=== PATIENT | female | born 1945 | race Caucasian/White ===

== ENCOUNTER 2016-11-01 21:24 | Emergency (ER) | payer OTHER ==
[~2016-11-01] VITALS: Ht 152.4 cm; Wt 68.2 kg
[2016-11-01 21:35] VITALS: Ht 152.4 cm; Wt 68.2 kg
--- NOTE | 2016-11-01 22:24 | ERA ---
ER Documentation Chief Complaint Date/Time DATE: 11/01/16 TIME: 22:24 Chief Complaint Abdominal pain HPI The patient is a 71-year-old female, presenting to the ER because of diffuse abdominal pain and left lower back pain for the last 3 days, worse today. She denies similar symptoms previously, no aggravating or relieving factor, denies associated nausea or vomiting or diarrhea constipation. She denies fever, chills , neck pain, chest pain. She does not smoke or drink Past medical history: Diabetes mellitus, dyslipidemia, hypertension, GERD Past surgical history: Hysterectomy ROS All systems reviewed and are negative except as per history of present illness. Medications Home Meds Active Scripts Ibuprofen* (Motrin*) 600 Mg Tab, 600 MG PO Q6, #30 TAB Prov:ARMAAN FITCH MD 11/02/16 Metronidazole* (Flagyl*) 500 Mg Tablet, 500 MG PO TID for 10 Days, TAB Prov:ARMAAN FITCH MD 11/02/16 Ciprofloxacin Hcl* (Ciprofloxacin Hcl*) 500 Mg Tablet, 500 MG PO BID for 10 Days , TAB Prov:ARMAAN FITCH MD 11/02/16 Reported Medications Ergocalciferol (Vitamin D2) (VITAMIN D2) 50,000 Unit Capsule, 38355 UNIT PO, CAP 11/02/16 Aspirin* (Aspirin* EC) 81 Mg Tablet.dr, 81 MG PO DAILY, TAB 11/02/16 Lisinopril* (Lisinopril*) 20 Mg Tablet, 20 MG PO DAILY, #30 TAB 11/02/16 Metformin* (Glucophage*) 500 Mg Tab, 500 MG PO WITH BREAKFAST DINNE, #30 TAB 11/02/16 Acetaminophen* (Acetaminophen*) 500 MG Extra Strength Tablet, 500 MG PO Q4H Y for PAIN AND OR ELEVATED TEMP, TAB 11/02/16 Allergies Allergies: Coded Allergies: No Known Allergy (Unverified , 11/01/16) Physical Exam Vitals Vital Signs Date Time Temp Pulse Resp B/P Pulse Ox O2 Delivery O2 Flow Rate FiO2 11/02/16 00:31 97.6 77 20 164/77 98 Room Air 11/01/16 21:35 97.6 106 20 163/72 98 Physical Exam Const: No acute distress. Head: Atraumatic. Eyes: Normal Conjunctiva. ENT: Normal External Ears, Nose and Mouth. Neck: Full range of motion. No meningismus. Resp: Clear to auscultation bilaterally. Cardio: Regular rate and rhythm. Abd: Soft, obese and diffuse abdominal mild tenderness, normal bowel sounds, mild left CVA tenderness, no rigidity, rebound, CVA tenderness Skin: No petechiae or rashes. Back: No midline or flank tenderness. Ext: No cyanosis, or edema. Neur: Awake and alert. No focal deficit Psych: Normal Mood and Affect. Result Diagram: 11/01/16222611/01/162226 Results 24 hrs Laboratory Tests Test 11/01/16 22:27 11/01/16 23:19 White Blood Count 9.510^3/ul Red Blood Count 4.1810^6/ul Hemoglobin 13.2g/dl Hematocrit 36.4% Mean Corpuscular Volume 87.1fl Mean Corpuscular Hemoglobin 31.6pg Mean Corpuscular Hemoglobin Concent 36.3g/dl Red Cell Distribution Width 12.2% Platelet Count 16043^3/UL Mean Platelet Volume 10.5fl Neutrophils % 60.6% Lymphocytes % 32.4% Monocytes % 6.3% Eosinophils % 0.0% Basophils % 0.3% Nucleated Red Blood Cells % 0.0/100WBC Neutrophils # 5.710^3/ul Lymphocytes # 3.110^3/ul Monocytes # 0.610^3/ul Eosinophils # 0.010^3/ul Basophils # 0.010^3/ul Nucleated Red Blood Cells # 0.010^3/ul Sodium Level 146mmol/L Potassium Level 4.1mmol/L Chloride Level 101mmol/L Carbon Dioxide Level 24mmol/L Anion Gap 25 Blood Urea Nitrogen 13mg/dl Creatinine 0.66mg/dl Glucose Level 189mg/dl Calcium Level 9.5mg/dl Total Bilirubin 0.2mg/dl Direct Bilirubin 0.00mg/dl Indirect Bilirubin 0.2mg/dl Aspartate Amino Transf (AST/SGOT) 22IU/L Alanine Aminotransferase (ALT/SGPT) 34IU/L Alkaline Phosphatase 114IU/L Total Protein 7.6g/dl Albumin 4.4g/dl Globulin 3.20g/dl Albumin/Globulin Ratio 1.37 Lipase 34U/L Bedside Urine pH (LAB) 5.5 Bedside Urine Protein (LAB) Negative Bedside Urine Glucose (UA) Negative Bedside Urine Ketones (LAB) Negative Bedside Urine Blood Trace-intact Bedside Urine Nitrite (LAB) Negative Bedside Urine Leukocyte Esterase (L 2+ Current Medications Medications (Trade) Dose Ordered Sig/Arsh Route PRN Reason Start Time Stop Time Status Last Admin Dose Admin Morphine Sulfate (morphine) 2 mg ONCE ONCE IV 11/01/16 23:00 11/01/16 23:01 DC 11/01/16 23:39 Ondansetron HCl (Zofran Inj) 4 mg ONCE STAT IV 11/01/16 22:40 11/01/16 22:42 DC 11/01/16 23:39 Ciprofloxacin (Cipro) 500 mg ONCE ONCE PO 11/02/16 01:00 11/02/16 01:01 DC 11/02/16 01:07 Metronidazole (Flagyl) 500 mg ONCE ONCE PO 11/02/16 01:00 11/02/16 01:01 DC 11/02/16 01:07 Procedures/[place] [id number] Radiology Main Line: [phone] DIAGNOSTIC IMAGING REPORT Patient: CHI JAY : 1945 Age: 71 Sex: F MR #: [id number] DOS: 11/01/16 2240 Ordering MD: ARMAAN FITCH MD Location: E/R Room/Bed: PROCEDURE: CT Abdomen and pelvis without contrast. CLINICAL INDICATION: Abdominal pain. TECHNIQUE: CT scan of the abdomen and pelvis was performed on a multi- detector high-resolution CT scanner. Contiguous axial images were obtained from the lung bases to the ischial tuberosities without intravenous contrast. Coronal and sagittal reformatted images were also obtained. Images were reviewed on the PACS workstation. One or more of the following dose reduction techniques were used: - Automated exposure control. - Adjustment of the mA and/or kV according to patient size. - Use of iterative reconstruction technique. Exam CTD/vol = 13.58 mGy. Total exam DLP = 752.58 mGy-cm. COMPARISON: None. FINDINGS: Evaluation of the lung bases demonstrates mild ground-glass opacities suggestive of air trapping. Abdomen: The liver is normal in size. There is no focal mass or dilatation of the biliary tree. The gallbladder is not distended. A small gallstone is identified. The spleen, pancreas and bilateral adrenal glands are within normal limits. Bilateral kidneys are normal in size with a cyst within the lower pole of the left kidney measuring 1.7 x 1.3 cm with layering calcifications. There is no radiopaque renal or ureteral calculus identified. There is no hydronephrosis or hydroureter. There is no retroperitoneal adenopathy. The abdominal aorta is of normal caliber with scattered atherosclerotic calcifications. There is moderate retained stool within the colon. There is no bowel obstruction or free air. A normal appendix is identified. There is sigmoid diverticulosis with mild thickening and stranding involving the proximal sigmoid colon. There is no ascites. Pelvis: The bladder is unremarkable. The uterus is absent. There is no significant pelvic adenopathy or free fluid. Evaluation of the osseous structures demonstrates no suspicious lytic or blastic lesion. IMPRESSION: Sigmoid diverticulosis with mild diverticulitis of the proximal sigmoid. Moderate retained stool within the colon. Cholelithiasis. Small left renal cyst with layering calcifications. Vascular calcifications reflective of atherosclerosis. .oJsé Ray MD, MD Date Time Electronically viewed and signed by .José Ray MD, on 11/02/2016 00:31 .T/ CC: ARMAAN FITCH MD MEDICAL MAKING DECISION: The patient is a 71-year-old female, presenting with acute left pyelonephritis, acute mild diverticulitis and incidental cholelithiasis. She was treated with morphine 2 mg IV for pain, Zofran 4 mg IV for now nausea, Cipro 500 mg p.o., Flagyl 500 mg p.o. for acute pyelonephritis and acute diverticulitis with good response. She is not toxic, stable vital signs, stable for outpatient follow-up The differential diagnoses considered include but are not limited to cholelithiasis, cholecystitis, cystitis, pancreatitis, hepatitis, gastritis, peptic ulcer disease, gastric ulcer, appendicitis, diverticulitis, cholangitis, choledocholithiasis, partial small bowel obstruction. Departure Diagnosis: Primary Impression: Pyelonephritis Additional Impressions: Diverticulitis Cholelithiasis Condition: Good Comments She was discharged with Geovany Jeffries Motrin I discussed the findings with the patient. I advised the patient to follow-up with the primary physician in about 1-2 days, sooner if needed and return if any concern. ARMAAN FITCH MD Nov 01, 2016 22:24
[2016-11-01] MEDS ORDERED: ONDANSETRON 4 MG INJ IV STA (22:40)
[2016-11-01] MEDS ORDERED: morphine 2 MG INJ IV ONE (23:00)
[2016-11-01 23:14] LABS: URINE BLOOD (Dip) POC Trace-intact (NEGATIVE)
[2016-11-01 23:22] LABS: BASOPHILS % 0.3 % (0.0-2.0); HEMATOCRIT 36.4 % (37.0-47.0); HEMOGLOBIN 13.2 g/dl (12.0-16.0); LYMPHOCYTES # 3.1 10^3/ul (0.8-2.9); LYMPHOCYTES % 32.4 % (15.0-51.0); MEAN CORPUSCULAR HEMOGLOBIN 31.6 pg (29.0-33.0); MEAN CORPUSCULAR HGB CONC 36.3 g/dl (32.0-37.0); MEAN CORPUSCULAR VOLUME 87.1 fl (82.0-101.0); MEAN PLATELET VOLUME 10.5 fl (7.4-10.4); MONOCYTE # 0.6 10^3/ul (0.3-0.9); MONOCYTES % 6.3 % (0.0-11.0); NEUTROPHIL # 5.7 10^3/ul (1.6-7.5); NEUTROPHILS % 60.6 % (39.0-77.0); PLATELET COUNT 259 10^3/UL (140-415); RED BLOOD COUNT 4.18 10^6/ul (4.20-5.40); RED CELL DISTRIBUTION WIDTH 12.2 % (11.5-14.5); WHITE BLOOD COUNT 9.5 10^3/ul (4.8-10.8)
[2016-11-01 23:46] LABS: ALBUMIN 4.4 g/dl (3.3-4.9); ALBUMIN/GLOBULIN RATIO 1.37; BILIRUBIN,INDIRECT 0.2 mg/dl (0-1.1); BILIRUBIN,TOTAL 0.2 mg/dl (0.2-1.3); CALCIUM 9.5 mg/dl (8.4-10.2); CREATININE 0.66 mg/dl (0.44-1.00); POTASSIUM 4.1 mmol/L (3.5-5.1); TOTAL PROTEIN 7.6 g/dl (6.1-8.1)
[2016-11-02] MEDS ORDERED: ACET-141 PO (00:22)
[2016-11-02] MEDS ORDERED: ASPI-664 PO (00:22)
[2016-11-02] MEDS ORDERED: ERGO500037 PO (00:22)
[2016-11-02] MEDS ORDERED: METF500T4 PO (00:22)
[2016-11-02] MEDS ORDERED: LISI20TA11 PO (00:22)
--- NOTE | 2016-11-02 00:31 | RADRPT ---
PROCEDURE: CT Abdomen and pelvis without contrast. CLINICAL INDICATION: Abdominal pain. TECHNIQUE: CT scan of the abdomen and pelvis was performed on a multi-detector high-resolution CT scanner. Contiguous axial images were obtained from the lung bases to the ischial tuberosities wit hout intravenous contrast. Coronal and sagittal reformatted images were also obtained. Images were reviewed on the PACS workstation. One or more of the following dose reduction techniques were used: - Automated exposure control. - Adjustment of the mA and/or kV according to patient size. - Use of iterative reconstruction technique. Exam CTD/vol = 13.58 mGy. Total exam DLP = 752.58 mGy-cm. COMPARISON: None. FINDINGS: Evaluation of the lung bases demonstrates mild ground-glass opacities suggestive of air trapping. Abdomen: The liver is normal in size. There is no focal mass or dilatation of the biliary tree. T he gallbladder is not distended. A small gallstone is identified. The spleen, pancreas and bilater al adrenal glands are within normal limits. Bilateral kidneys are normal in size with a cyst within the lower pole of the left kidney measuring 1.7 x 1.3 cm with layering calcifications. There is no radiopaque renal or ureteral calculus identified. There is no hydronephrosis or hydroureter. Ther e is no retroperitoneal adenopathy. The abdominal aorta is of normal caliber with scattered atheros clerotic calcifications. There is moderate retained stool within the colon. There is no bowel obstruction or free air. A no rmal appendix is identified. There is sigmoid diverticulosis with mild thickening and stranding inv olving the proximal sigmoid colon. There is no ascites. Pelvis: The bladder is unremarkable. The uterus is absent. There is no significant pelvic adenopa thy or free fluid. Evaluation of the osseous structures demonstrates no suspicious lytic or blastic lesion. IMPRESSION: Sigmoid diverticulosis with mild diverticulitis of the proximal sigmoid. Moderate retained stool within the colon. Cholelithiasis. Small left renal cyst with layering calcifications. Vascular calcifications reflective of atherosclerosis. .José Ray MD, MD Date Time Electronically viewed and signed by .José Ray MD, MD on 11/02/2016 00:31 .T/
[2016-11-02] MEDS ORDERED: CIPROFLOXACIN 500 MG TAB PO ONE (01:00)
[2016-11-02] MEDS ORDERED: metroNIDAZOLE 500 MG TAB PO ONE (01:00)
[2016-11-02] MEDS ORDERED: CIPR500T4 PO (01:31)
[2016-11-02] MEDS ORDERED: METR500T PO (01:32)
[2016-11-02] MEDS ORDERED: IBUP-1542 PO (01:32)
[2016-11-02 02:29] VITALS: BP 155/68; PULSE 77; RESP 20; TEMP 97.6
== END 2016-11-02 02:30 | disposition home or self-care (01) ==
LOC: E/R 21:24
DX: N10 Acute pyelonephritis (principal); K57.32 Diverticulitis of large intestine without perforation or abscess without bleeding; K80.20 Calculus of gallbladder without cholecystitis without obstruction; I10 Essential (primary) hypertension; E11.9 Type 2 diabetes mellitus without complications; Z79.84 Long term (current) use of oral hypoglycemic drugs; Z79.82 Long term (current) use of aspirin
CPT/HCPCS: 36415; 74176; 80053; 81003; 83690; 85025; 96374; 96375; 99285; J2270; J2405

== ENCOUNTER 2016-12-11 12:43 | Inpatient (IN) | payer OTHER ==
[~2016-12-11] VITALS: Ht 157.5 cm; Wt 70.0 kg
[~2016-12-11 12:43] MED LIST: ACET-141 PO; ASPI-664 PO; CIPR500T4 PO; ERGO500037 PO; IBUP-1542 PO; LISI20TA11 PO; METF500T4 PO; METR500T PO
[2016-12-11] MEDS ORDERED: ACETAMINOPHEN 500 MG TAB PO STA (15:11)
--- NOTE | 2016-12-11 16:18 | RADRPT ---
PROCEDURE: XR Shoulder. CLINICAL INDICATION: Shoulder pain TECHNIQUE: Three views of the right shoulder are available for review. COMPARISON: None available FINDINGS: The humeral head is located. Enthesopathic changes are present at the greater tuberosity. Mild AC salvador int arthrosis. There is no acute osseous or articular abnormality. No evidence for fracture. The v isualized portions of the right lung are clear . IMPRESSION: 1. Enthesopathic changes seen at the greater tuberosity suggesting underlying chronic rotator cuff pathology. 2. No acute osseous abnormality. 3. Mild AC joint arthrosis. RPTAT: PP .Ramon Jackson MD, Date Time Electronically viewed and signed by .Ramon Jackson MD, on 12/11/2016 16:18 .d/
--- NOTE | 2016-12-11 16:23 | RADRPT ---
PROCEDURE: Lumbar spine series CLINICAL INDICATION: Pain status post fall TECHNIQUE: AP, lateral and cone lateral views COMPARISON: None available FINDINGS: The visualized spine alignment is normal. Preservation vertebral body heights are noted. Vacuum phen omenon is noted with mild disc space height loss at L4-5 and moderate at L5-S1. No evidence for acut e fractures, traumatic subluxations, spondylolisthesis or spondylolysis is present. Mild degenerativ e spondylosis/enthesopathy is present in the lumbar spine. The imaged paravertebral soft tissues are normal and no calcifications are visualized. IMPRESSION: 1. No acute fractures, traumatic subluxations, spondylolisthesis or spondylolysis. 2. Mild disc space height loss and vacuum disc phenomenon at L4-5 and moderate disc space height lo ss at L5-S1. 3. Degenerative spondylosis/enthesopathy of the lumbar spine RPTAT: HDC .Jenny Osman MD, Date Time Electronically viewed and signed by .Jenny Osman MD, on 12/11/2016 16:23 .C/
--- NOTE | 2016-12-11 17:32 | RADRPT ---
PROCEDURE: CT Orbits without intravenous contrast CLINICAL INDICATION: Pain after fall. COMPARISON: None relevant listed. TECHNIQUE: Axial CT of the orbits with coronal and sagittal reformats. DOSE: The estimated administered radiation dose was CTDI vol = 29 mGy. DLP = 331 mGy-cm. One or mor e of the following dose reduction techniques were used: automated exposure control, adjustment of th e mA and/or kV according to patient size, or use of iterative reconstruction. FINDINGS: Orbital soft tissues: Moderate left periorbital soft tissue swelling. No postseptal soft tissue abno rmality identified. Globes: Normal. Extraocular muscles: Normal. Optic nerves: Normal. Lacrimal glands: Normal. Extra-orbital soft tissues: Normal. Visualized brain parenchyma: No acute hemorrhage, large territorial infarction, mass, or enhancement . Visualized CSF spaces: No herniation, ventricular effacement, ventriculomegaly, or midline shift. Paranasal sinuses: Small mucous retention cysts or polyps in both maxillary sinuses. Mastoids and middle ears: Clear. Bones: Normal. Additional comment: Mild calcified atherosclerotic arterial plaque. IMPRESSION: Moderate left periorbital soft tissue swelling. No fracture identified. RPTAT: [facility] Physician Sree Date Time Electronically viewed and signed by Physician Sree on 12/11/2016 17:32 LG/
--- NOTE | 2016-12-11 17:33 | RADRPT ---
PROCEDURE: CT head without intravenous contrast CLINICAL INDICATION: Pain after fall. COMPARISON: None relevant listed. TECHNIQUE: Axial CT images from skull base to vertex with coronal and sagittal reformats. DOSE: The estimated administered radiation dose was CTDI vol = 44 mGy. DLP = 630 mGy-cm. One or mor e of the following dose reduction techniques were used: automated exposure control, adjustment of th e mA and/or kV according to patient size, or use of iterative reconstruction. FINDINGS: Parenchyma: No acute hemorrhage, large territorial infarction, or mass. Ventricles: No ventriculomegaly or ventricular effacement. Extra-axial spaces: Small amount of subarachnoid and subdural blood overlying the posterior aspect o f the superior frontal gyrus (series 2, image 20) as well as the falx. Blood products measure up to 5 mm thick. Paranasal sinuses: Clear. Mastoids and middle ears: Clear. Vessels: No calcified atherosclerotic arterial plaque identified. Bones: Normal. Extracranial soft tissues: Normal. Additional comment: None. IMPRESSION: Small amount of subdural and subarachnoid blood overlying the left frontal convexity and falx. Elvin Lockhart M.D. discussed findings with Rob Del Cid M.D. via telephone at 5:29 PM on 12/11/2016 with read back confirmation. RPTAT: [facility] Physician Sree Date Time Electronically viewed and signed by Physician Sree on 12/11/2016 17:33 LG/
--- NOTE | 2016-12-11 17:37 | RADRPT ---
PROCEDURE: CT Cervical Spine without contrast. CLINICAL INDICATION: Fall. Neck pain. TECHNIQUE: A CT of the cervical spine was performed on a CT scanner utilizing thin section axial images from the skull base through the thoracic inlet. Sagittal and coronal reformatted images were made. The CTDIvol is 22.05 mGy and the DLP is 404.97 mGycm. Automated exposure control, adjustment of the mA and/or kV according to patient size, use of iterative reconstruction technique. COMPARISON: No prior studies are available for comparison. FINDINGS: Straightening of the cervical spine. The vertebral bodies are normal in height and density. No sublu xation or dislocation. No fracture is evident. C2-3: The disc is normal in height. Moderate to severe hypertrophic left facet joint arthropathy No significant disk bulge or protrusion is evident. There is no central canal stenosis or foraminal jim rowing. C3-4: The disc is normal in height. No significant disk bulge or protrusion is evident. There is no central canal stenosis or foraminal narrowing. C4-5: The disc is normal in height. No significant disk bulge or protrusion is evident. There is no central canal stenosis or foraminal narrowing. C5-6: Marked disc space narrowing and anterior endplate spurring. Mild bilateral uncovertebral joint hypertrophy asymmetric to the right. Left hypertrophic facet joint arthropathy. Moderate to severe right foraminal stenosis without central canal or left foraminal stenosis. C6-7: The disc is normal in height. No significant disk bulge or protrusion is evident. There is no central canal stenosis or foraminal narrowing. C7-T1: The disc is normal in height. No significant disk bulge or protrusion is evident. There is no central canal stenosis or foraminal narrowing. No paraspinal soft tissue abnormality. The visualized lung apices are clear. IMPRESSION: 1. Straightening of the cervical spine without evidence of acute fracture or dislocation. No paraspi nal soft tissue abnormality. 2. Marked disc space narrowing and degenerative enthesopathy at the C5-C6 resulting in moderate to severe right foraminal stenosis without central canal or left foraminal stenosis. RPTAT:AAJJ Raúl Holman Physician Date Time Electronically viewed and signed by Raúl Holman Physician on 12/11/2016 17:37 DYLON/
[2016-12-11 18:18] LABS: BASOPHILS % 0.3 % (0.0-2.0); EOSINOPHILS % 0.1 % (0.0-7.0); HEMATOCRIT 37.1 % (37.0-47.0); HEMOGLOBIN 13.4 g/dl (12.0-16.0); LYMPHOCYTES # 3.3 10^3/ul (0.8-2.9); LYMPHOCYTES % 46.6 % (15.0-51.0); MEAN CORPUSCULAR HEMOGLOBIN 31.2 pg (29.0-33.0); MEAN CORPUSCULAR HGB CONC 36.1 g/dl (32.0-37.0); MEAN CORPUSCULAR VOLUME 86.5 fl (82.0-101.0); MEAN PLATELET VOLUME 10.1 fl (7.4-10.4); MONOCYTE # 0.4 10^3/ul (0.3-0.9); MONOCYTES % 5.7 % (0.0-11.0); NEUTROPHILS % 46.9 % (39.0-77.0); PLATELET COUNT 217 10^3/UL (140-415); RED BLOOD COUNT 4.29 10^6/ul (4.20-5.40); RED CELL DISTRIBUTION WIDTH 11.9 % (11.5-14.5)
[2016-12-11] MEDS ORDERED: ATOR20TA38 PO (18:33)
[2016-12-11 18:47] LABS: ANION GAP 15 (8-16); BLOOD UREA NITROGEN 13 mg/dl (7-20); CALCIUM 8.9 mg/dl (8.4-10.2); CARBON DIOXIDE 23 mmol/L (21-31); CHLORIDE 108 mmol/L (97-110); CREATININE 0.66 mg/dl (0.44-1.00); GLUCOSE 180 mg/dl (70-220); POTASSIUM 3.8 mmol/L (3.5-5.1); SODIUM 142 mmol/L (135-144)
--- NOTE | 2016-12-11 18:56 | ERA ---
ER Documentation Chief Complaint Date/Time DATE: 12/11/16 TIME: 18:51 Chief Complaint head injury from glf; sent from clinic for further eval. HPI This 71-year-old female presents to the emergency room for evaluation of a ground-level fall. She states that she was getting out of bed this morning and her right hand was asleep and she lost balance when trying to push herself out of bed. She fell forward and did hit the left side of her head on the cabinet. She did not lose consciousness. She came to the ER for evaluation. She is stating she is having pain over the left side of her head with no radiation no blurred vision and no associated neck pain or numbness or tingling. No aggravating or relieving factors for her symptoms at this time ROS All systems reviewed and are negative except as per history of present illness. Medications Home Meds Reported Medications Atorvastatin Calcium* (Atorvastatin Calcium*) 20 Mg Tablet, 20 MG PO QHS, #30 TAB 12/11/16 Ergocalciferol (Vitamin D2) (VITAMIN D2) 50,000 Unit Capsule, 37649 UNIT PO, CAP 11/02/16 Aspirin* (Aspirin* EC) 81 Mg Tablet.dr, 81 MG PO DAILY, TAB 11/02/16 Lisinopril* (Lisinopril*) 20 Mg Tablet, 20 MG PO DAILY, #30 TAB 11/02/16 Metformin* (Glucophage*) 500 Mg Tab, 500 MG PO WITH BREAKFAST DINNE, #30 TAB 11/02/16 Discontinued Reported Medications Acetaminophen* (Acetaminophen*) 500 MG Extra Strength Tablet, 500 MG PO Q4H Y for PAIN AND OR ELEVATED TEMP, TAB 11/02/16 Discontinued Scripts Ibuprofen* (Motrin*) 600 Mg Tab, 600 MG PO Q6, #30 TAB Prov:ARMAAN FITCH MD 11/02/16 Metronidazole* (Flagyl*) 500 Mg Tablet, 500 MG PO TID for 10 Days, TAB Prov:ARMAAN FITCH MD 11/02/16 Ciprofloxacin Hcl* (Ciprofloxacin Hcl*) 500 Mg Tablet, 500 MG PO BID for 10 Days , TAB Prov:ARMAAN FITCH MD 11/02/16 Allergies Allergies: Coded Allergies: No Known Allergy (Unverified , 12/11/16) PMhx/Soc History of Surgery: Yes (HYSTERECTOMY) Anesthesia Reaction: No Hx Neurological Disorder: No Hx Respiratory Disorders: No Hx Cardiac Disorders: Yes (HLD,HTN) Hx Psychiatric Problems: No Hx Miscellaneous Medical Probl: Yes (DM) Hx Alcohol Use: No Hx Substance Use: No Hx Tobacco Use: No Smoking Status: Never smoker Physical Exam Vitals Vital Signs Date Time Temp Pulse Resp B/P Pulse Ox O2 Delivery O2 Flow Rate FiO2 12/11/16 18:31 81 17 175/82 100 Room Air 12/11/16 13:17 98.9 92 18 137/73 97 Physical Exam INITIAL VITAL SIGNS: Reviewed by me GENERAL: The patient is well developed and appropriate for usual state of health in no apparent distress HEENT: Left facial ecchymosis around the orbital ridge, pupils equal, round, and reactive to light. EOMI. There is no scleral icterus. NECK: C-spine is soft and supple, there is no meningismus. There is no cervical lymphadenopathy. LUNGS: Clear to auscultation bilaterally. There are no rales, wheezes or rhonchi. HEART: Regular rate and rhythm, no murmurs, clicks, rubs or gallops. ABDOMEN: Soft, non-tender, non-distended. There are bowel sounds in all four quadrants. No rebound or guarding. EXTREMITIES: There is no peripheral cyanosis or edema. No focal swelling or erythema. NEUROLOGICAL: The patient moves all four extremities with 5/5 strength. Cranial nerves II - XII are intact. Normal gait. Alert and oriented SKIN: There is no apparent rash or petechiae. HEME/LYMPHATIC: There is no evidence of excessive bruising or lymphedema. PSYCHIATRIC: The patient does not appear anxious or depressed. Result Diagram: 12/11/16180412/11/161804 Results 24 hrs Laboratory Tests Test 12/11/16 18:05 White Blood Count 7.010^3/ul Red Blood Count 4.2910^6/ul Hemoglobin 13.4g/dl Hematocrit 37.1% Mean Corpuscular Volume 86.5fl Mean Corpuscular Hemoglobin 31.2pg Mean Corpuscular Hemoglobin Concent 36.1g/dl Red Cell Distribution Width 11.9% Platelet Count 98721^3/UL Mean Platelet Volume 10.1fl Neutrophils % 46.9% Lymphocytes % 46.6% Monocytes % 5.7% Eosinophils % 0.1% Basophils % 0.3% Nucleated Red Blood Cells % 0.0/100WBC Neutrophils # (Manual) 3.310^3/ul Lymphocytes # 3.310^3/ul Monocytes # 0.410^3/ul Eosinophils # 0.010^3/ul Basophils # 0.010^3/ul Nucleated Red Blood Cells # 0.010^3/ul Sodium Level 142mmol/L Potassium Level 3.8mmol/L Chloride Level 108mmol/L Carbon Dioxide Level 23mmol/L Anion Gap 15 Blood Urea Nitrogen 13mg/dl Creatinine 0.66mg/dl Glucose Level 180mg/dl Calcium Level 8.9mg/dl Troponin I Pending Current Medications Medications (Trade) Dose Ordered Sig/Arsh Route PRN Reason Start Time Stop Time Status Last Admin Dose Admin Acetaminophen (Tylenol Tab) 500 mg ONCE STAT PO 12/11/16 15:11 12/11/16 15:13 DC 12/11/16 15:25 Procedures/MDM : Small amount of subdural and subarachnoid blood overlying the left frontal convexity and falx.CT brain without: This patient presents to the ER after ground-level fall. She was found to have a small amount of subdural and subarachnoid blood overlying the left frontal convexity and falx. She is neurologically intact with no focal neurological deficits. The patient underwent a CT of her head which demonstrated this blood , CT of the cervical spine and x-rays do not reveal any damage. The patient will be placed in for evaluation at this time. I have spoken to our on-call neurosurgeon, Dr. salcedo who will evaluate this patient. This patient will be placed on telemetry floor under the care of Dr. Mane. Critical Care: Excluding all billable procedures Time: 42 minutes Treatments/Evaluations: Close monitoring and treatment of unstable vital signs, cardiorespiratory, and neurologic status, while maintaining tight balance of fluid, respiratory, and cardiac interventions. Departure Diagnosis: Primary Impression: Subdural hemorrhage Additional Impressions: Subarachnoid hemorrhage Fall with significant injury Condition: Stable GABRIEL CABRALES DO Dec 11, 2016 18:56
[2016-12-11] MEDS ORDERED: ONDANSETRON 4 MG INJ IV PRN ×2 (19:00→19:30)
[2016-12-11] MEDS ORDERED: ACETAMINOPHEN 325 MG TAB PO PRN ×2 (19:00→19:30)
[2016-12-11 19:01] LABS: TROPONIN-I < 0.012 ng/ml (0.00-0.12)
[2016-12-11] MEDS ORDERED: MAGNESIUM HYDROXIDE 30ML CUP PO PRN (19:30)
[2016-12-11] MEDS ORDERED: LORAZEPAM 2 MG INJ IV PRN (19:30)
[2016-12-11] MEDS ORDERED: GLUCOSE GEL 15 GRAM TUBE BUCCAL PRN (19:30)
[2016-12-11] MEDS ORDERED: GLUCAGON 1 MG INJ IM PRN (19:30)
[2016-12-11] MEDS ORDERED: ALBUTEROL/IPRATROPIUM (NEB) 3 ML AMP HHN PRN (19:30)
[2016-12-11] MEDS ORDERED: DEXTROSE 50% 50 ML SYRINGE IV PRN ×2 (19:30)
[2016-12-11] MEDS ORDERED: NA PHOSPHATE/BIPHOS 133 ML ENEMA PR PRN (19:30)
[2016-12-11] MEDS ORDERED: HYDROCODONE/APAP (5/325) TAB PO PRN (19:30)
[2016-12-11] MEDS ORDERED: DOCUSATE SODIUM 100 MG CAP PO PRN (19:30)
[2016-12-11] MEDS ORDERED: NITROGLYCERIN (SL) 0.4 MG TAB SL PRN (19:30)
[2016-12-11] MEDS ORDERED: GLUCOSE GEL 15 GRAM TUBE PO PRN ×2 (19:30)
[2016-12-11] MEDS ORDERED: hydrALAzine 20 MG INJ IV PRN ×2 (19:30)
[2016-12-11] MEDS ORDERED: morphine 2 MG INJ IV PRN (19:30)
[2016-12-11] MEDS ORDERED: NACL 0.9% 3 ML SYG IV SCH (19:30)
[2016-12-11 20:04] LABS: INR 0.83; PROTIME 11.4 Sec (12.2-14.2); PT RATIO 0.9
[2016-12-11 20:05] LABS: PARTIAL THROMBOPLASTIN TIME 37.8 Sec (25.0-35.0)
[2016-12-11] MEDS: SOD CHLORIDE 0.45% 1,000 ML IV SCH (20:08)
--- NOTE | 2016-12-11 20:21 | HP ---
DATE OF ADMISSION: 12/11/2016 IDENTIFICATION: A 71-year-old female. CHIEF COMPLAINT: Head injury from status post fall. HISTORY OF PRESENT ILLNESS: The patient is a 71-year-old female, past medical history of type 2 diabetes, high cholesterol, hypertension, who presented with a ground level fall and head pain. The family, patient was trying to get out of bed this morning as her right hand was asleep, but she unfortunately lost balance when trying to push herself out of bed. She hit the left side of her head on a desk or cabinet after falling forward. No loss of consciousness. No palpitations beforehand. No tongue biting. No loss of bowel or bladder function. No upper or lower GI bleeding. No shortness of breath. No diarrhea. No constipation. Afterwards, she continued to have pain on the left side of her head, but again no blurry vision. No neck pain. No numbness or tingling, but decided to come to the ER. When she came in, she had multiple images performed, including a head CT that does show a small amount of subdural and subarachnoid blood overlying the left frontal convexity and falx and the ER team did notify the neurosurgery team who came and evaluated the patient as well. PAST MEDICAL HISTORY: Above. ALLERGIES: NO KNOWN DRUG ALLERGIES. HOME MEDICATIONS: 1. Atorvastatin 20 mg at bedtime. 2. Lisinopril 20 mg daily. 3. Aspirin 81 mg daily. M 4. Etformin 500 mg b.i.d. 5. Vitamin D2 50,000 units. PAST SURGICAL HISTORY: She has had a hysterectomy in the past. SOCIAL HISTORY: Negative for smoking or drinking or IV drug abuse. FAMILY HISTORY: Noncontributory. PHYSICAL EXAMINATION: VITAL SIGNS: T-max 98.9, pulse 81 to 92, respirations of 17 to 18, blood pressure 137 to 175 systolic over 73 to 82 diastolic, satting at 100 percent room air. GENERAL: Patient lying in bed, answers question appropriately. No acute distress. HEENT: There is some left facial redness and ecchymosis around her orbital area. Otherwise pupils equal, round, react to light. Extraocular muscles intact. NECK: Supple. No thyromegaly. LUNGS: Clear to auscultation bilaterally. CARDIOVASCULAR: S1, S2 heard. No rubs, gallops. ABDOMEN: Soft, nontender, nondistended. Normal bowel sounds. No rebound or guarding. MUSCULOSKELETAL: Normal lower extremities bilaterally. NEUROLOGIC: No focal deficits. LABORATORY DATA: CBC is completely normal. Basic metabolic panel is normal. Troponin negative x1. We mentioned the head CT results in the HPI. C-spine CT scan does show straightening of the cervical spine. No evidence of acute fracture or dislocation. However, marked disc space narrowing and degenerative enthesopathy at the C5, C6 resulting in moderate to severe right foraminal stenosis without central canal or left foraminal stenosis. ASSESSMENT AND PLAN: The patient is a 71-year-old female status post fall with small subdural hematoma. 1. Status post fall with head pain, again resulting in a small subdural hematoma. We will admit the patient. Do neuro checks every 4 hours. Follow up Neurosurgery recommendations. They are recommending a repeat head CT scan in the morning. Obviously avoid all anticoagulants including aspirin and heparin products. Check TSH A1c lipid panel. 2. History of hypertension. Again, continue home blood pressure medicines and hydralazine p.r.n. 3. High cholesterol. Check lipid panel. Continue statin. 4. Diabetes. Put the patient on sliding scale insulin. Check A1c. 5. Gastrointestinal prophylaxis with proton pump inhibitor. 6. Get Physical Therapy and Occupational Therapy consults as well. Dictated By: Shadi Mane MD /bear/akil /Document#: [id number]
[2016-12-11] MEDS ORDERED: ATORVASTATIN 20 MG TAB PO SCH (21:00)
--- NOTE | 2016-12-11 21:33 | CONS ---
DATE OF ADMISSION: 12/11/2016 DATE OF CONSULTATION: 12/11/2016 REFERRING PHYSICIAN: Melania Suarez DO REASON FOR CONSULTATION: Traumatic subarachnoid hemorrhage. HISTORY OF PRESENT ILLNESS: The patient is a 71-year-old, right- handed female, who apparently fell out of bed and hit her head. She complains of pain over her left orbit. She denies any significant headache, nausea, or vomiting. She denies any new neck pain or radiating pain. The patient states she has these issues chronically, as well as some numbness. She denies any focal weakness or bowel or bladder issues. She denies any history of easy bruising or bleeding. CT scan of the head was performed in the ER, which showed a tiny traumatic frontal subarachnoid hemorrhage/subdural hematoma. This is very small, with no significant mass effect or shift. PAST MEDICAL HISTORY: Significant for hyperlipidemia, hypertension, and diabetes. PAST SURGICAL HISTORY: Significant for hysterectomy. REVIEW OF SYSTEMS: CONSTITUTIONAL: Patient denies any fevers, chills or weight loss. MUSCULOSKELETAL: Reports some back pain and reports some pain in her right leg, but states this is chronic. SOCIAL HISTORY: Patient is nonsmoker and nondrinker. Denies a history of substance abuse. FAMILY HISTORY: Denies any history of easy bruising or bleeding in the family. PHYSICAL EXAMINATION: VITAL SIGNS: Patient's temperature 98.9, pulse 92, respirations 18, blood pressure 137/73, saturating 94 percent on room air. GENERAL: Patient is a elderly, obese female, lying in the hospital bed, in no acute distress. HEAD AND NECK: Patient is normocephalic. There is a slight swelling over her left orbit, but no periorbital ecchymoses, otorrhea or rhinorrhea, Lhermitte's sign, neck pain, or Hartley sign. HEART: Regular rate and rhythm. CHEST: Clear to auscultation. ABDOMEN: Nontender, nondistended, soft. EXTREMITIES: No clubbing, cyanosis, or edema. NEUROLOGIC: The patient is awake, alert, and oriented x3. Fluent speech. Follows commands appropriately. Patient has normal attention and concentration. She follows commands readily and appropriately. Motor exam is 5/5, bilateral upper and lower extremities. No pronator drift. She has 1+ deep tendon reflexes. No clonus, Babinski or Nicole sign. Sensation is intact. LABORATORY: Patient's white count 7.0, hemoglobin 13.4, platelets 217. MEDICATION: Patient denies taking any blood-thinning medications, though the patient has reported: 1. Baby aspirin 81 mg. 2. Atorvastatin. 3. Vitamin D. 4. Lisinopril. 5. Glucophage. IMAGING: The patient had a CT scan of the cervical spine, which showed no evidence of fracture or subluxation. She also has a CT of the head and orbits, which showed moderate left periorbital soft tissue swelling, but no fracture identified. CT of the brain was performed, which showed small amount of subdural and subarachnoid blood overlying the left frontal convexity and falx. I agree with the radiologist's interpretation. Lastly, the patient had an x- ray of the lumbar spine, and this showed no evidence of acute fracture, subluxation, spondylolisthesis, spondylolysis. There is mild disc space height vacuum phenomenon at L4, L5, S1, moderate disc space height loss at L5, S1. There is degenerative spondylosis and enthesopathy of the lumbar spine. IMPRESSION AND PLAN: A 71-year-old female, status post fall, with small traumatic subdural and subarachnoid hemorrhage. I discussed the patient's signs, symptoms, physical exam, and radiographic findings with her. Patient has a small bleed. She did not lose consciousness, does not appear to have a concussion. The patient is on a baby aspirin, but even with this, I doubt there would likely be any significant expansion of blood to require any type of surgical evacuation. Nevertheless, patient should be kept under observation, with a repeat CT scan in the morning. Patient expressed understanding and agreed with plan of care. Dictated By: Ta Lafleur MD /bear/dandy /Document#: [id number] BRYAN
[2016-12-11] MEDS: INSULIN ASPART [NOVOLOG] 3 ML PEN SC SCH (22:02)
[2016-12-11 22:10] VITALS: Ht 157.5 cm; Wt 70.0 kg
[2016-12-12] VITALS (8 sets, daily range): BP systolic 131–165; BP diastolic 62–72; PULSE 61–71; RESP 18
[2016-12-12] MEDS: INSULIN ASPART [NOVOLOG] 3 ML PEN SC SCH ×4 (01:00→12:23)
[2016-12-12 01:20] LABS: CREATINE KINASE 74 IU/L (23-200)
[2016-12-12 01:34] LABS: CK-MB 1.55 ng/ml (0.0-2.4)
[2016-12-12 01:35] LABS: TROPONIN-I < 0.012 ng/ml (0.00-0.12)
[2016-12-12] MEDS ORDERED: ACCU-CHEK XX SCH (02:00)
[2016-12-12] MEDS ORDERED: PANTOPRAZOLE (EC) 40 MG TAB PO SCH (06:00)
[2016-12-12 07:33] LABS: BASOPHILS % 0.3 % (0.0-2.0); HEMATOCRIT 33.8 % (37.0-47.0); LYMPHOCYTES # 2.7 10^3/ul (0.8-2.9); LYMPHOCYTES % 46.3 % (15.0-51.0); MEAN CORPUSCULAR HEMOGLOBIN 30.8 pg (29.0-33.0); MEAN CORPUSCULAR HGB CONC 35.5 g/dl (32.0-37.0); MEAN CORPUSCULAR VOLUME 86.9 fl (82.0-101.0); MONOCYTE # 0.4 10^3/ul (0.3-0.9); MONOCYTES % 6.4 % (0.0-11.0); NEUTROPHILS % 46.7 % (39.0-77.0); PLATELET COUNT 194 10^3/UL (140-415); RED BLOOD COUNT 3.89 10^6/ul (4.20-5.40); RED CELL DISTRIBUTION WIDTH 12.2 % (11.5-14.5); WHITE BLOOD COUNT 5.8 10^3/ul (4.8-10.8)
[2016-12-12 07:58] LABS: CREATINE KINASE 71 IU/L (23-200)
[2016-12-12 08:01] LABS: CHOL/HDL RATIO 4.8 RATIO
[2016-12-12 08:08] LABS: CK-MB 1.28 ng/ml (0.0-2.4)
[2016-12-12 08:15] LABS: TROPONIN-I < 0.012 ng/ml (0.00-0.12)
[2016-12-12 08:25] LABS: CALCIUM 8.2 mg/dl (8.4-10.2); CREATININE 0.66 mg/dl (0.44-1.00); MAGNESIUM 2.1 mg/dl (1.7-2.5); PHOSPHORUS 3.5 mg/dl (2.5-4.9); POTASSIUM 4.1 mmol/L (3.5-5.1)
[2016-12-12 08:26] LABS: THYROID STIMULATING HORMONE 4.18 MIU/L (0.465-4.680)
[2016-12-12] MEDS: SOD CHLORIDE 0.45% 1,000 ML IV SCH (08:27)
[2016-12-12] MEDS ORDERED: LISINOPRIL 20 MG TAB PO SCH (09:00)
--- NOTE | 2016-12-12 11:31 | RADRPT ---
PROCEDURE: CT Brain without contrast. CLINICAL INDICATION: Headache. Trauma. Follow-up subdural and subarachnoid hemorrhage in the left frontal region. TECHNIQUE: A CT of the brain without contrast was performed utilizing axial sections from the skul l base through the vertex. The patient was scanned without intravenous contrast enhancement. Sagitta l and coronal reformatted images were obtained using the data from the axial images. Total exam DLP is 630.20 mGy-cm. CTDIvol is 43.27 mGy. One or more of the following dose reduction techniques we re used: Automated exposure control, adjustment of the mA and/or kV according to patient size, use o f iterative reconstruction technique. COMPARISON: CT scan of the brain dated 12/11/2016 which demonstrated a small amount of subdural an d subarachnoid blood overlying the left frontal convexity and falx. FINDINGS: There is normal traore-white matter differentiation. The ventricles and cisterns are normal. As seen previously, there is a small amount of subarachnoid and subdural blood overlying the posteri or aspect of the superior frontal gyrus as well as the falx. There is no mass effect. There is no li ne shift. There is no other new intracranial hemorrhage or space-occupying lesion. There is no skull fracture or lytic lesion. IMPRESSION: 1. Small amount of subdural and subarachnoid blood overlying the left frontal convexity and falx, u nchanged. No midline shift or mass effect. 2. No new intracranial hemorrhage or space-occupying lesion. 3. Otherwise unremarkable noncontrast CT scan of the brain. RPTAT: QQ .Rob Hayden MD, MD Date Time Electronically viewed and signed by .Rob Hayden MD, on 12/12/2016 11:31 .R/
--- NOTE | 2016-12-12 12:19 | PN ---
Date/Time of Note Date/Time of Note DATE: 12/12/16 TIME: 12:02 Assessment/Plan VTE Prophylaxis VTE Prophylaxis Intervention: ambulation, SCD's Lines/Catheters IV [facility]ter [facility]from [facility]): Peripheral IV Urinary Cath still in place: No Assessment/Plan Assessment/Plan 71-year-old female with: 1. Small left frontal subdural hematoma, status post fall, repeat CAT scan this morning stable, patient steady ambulating, no neurological deficit or headaches. She will be discharged home with outpatient for primary care physician. Discontinue aspirin. 2. Hypertension. Continue home medications. 3. Hyperlipidemia. Continue statin. 4. Diabetes mellitus, continue sliding scale insulin. Resume home medications at discharge today. Prophylaxis: Gastrointestinal prophylaxis with proton pump inhibitor, SCDs for DVT prophylaxis, patient ambulatory.. Disposition: Discharge planned for today if okay with neurosurgery and physical therapy. Subjective 24 Hr Interval Summary Free Text/Dictation Patient doing well today, she is currently on the phone. No headaches. No neurological deficit. She is able to ambulate without assistance. Repeat CAT scan this morning is within normal. Will have formal physical therapy evaluation but the patient should be able to discharge home today Exam/Review of Systems Vital Signs Vitals Vital Signs Date Time Temp Pulse Resp B/P Pulse Ox O2 Delivery O2 Flow Rate FiO2 12/12/16 11:41 97.5 64 18 152/70 94 12/11/16 21:21 Room Air Exam Constitutional: alert, oriented, well developed Head: atraumatic, normocephalic Respiratory: clear to auscultation, normal air movement Cardiovascular: nl pulses, regular rate and rhythm Gastrointestinal: non-tender, soft Musculoskeletal: nl extremities to inspection, nl gait and stance Extremities: normal pulses, other (No edema, clubbing or cyanosis) Neurological: PIPE FITTER II-XII intact, nl mental status, nl speech, nl strength Results Result Diagram: 12/12/16 0656 12/12/16 0656 Results 24 hrs Laboratory Tests Test 12/11/16 18:05 12/11/16 22:01 12/11/16 23:55 12/12/16 00:55 White Blood Count 7.0 # Red Blood Count 4.29 Hemoglobin 13.4 Hematocrit 37.1 Mean Corpuscular Volume 86.5 Mean Corpuscular Hemoglobin 31.2 Mean Corpuscular Hemoglobin Concent 36.1 Red Cell Distribution Width 11.9 Platelet Count 217 Mean Platelet Volume 10.1 Neutrophils % 46.9 Lymphocytes % 46.6 Monocytes % 5.7 Eosinophils % 0.1 Basophils % 0.3 Nucleated Red Blood Cells % 0.0 Neutrophils # (Manual) 3.3 Lymphocytes # 3.3 H Monocytes # 0.4 Eosinophils # 0.0 Basophils # 0.0 Nucleated Red Blood Cells # 0.0 Prothrombin Time 11.4 L Prothrombin Time Ratio 0.9 INR International Normalized Ratio 0.83 Activated Partial Thromboplast Time 37.8 H Sodium Level 142 Potassium Level 3.8 Chloride Level 108 Carbon Dioxide Level 23 Anion Gap 15 Blood Urea Nitrogen 13 Creatinine 0.66 Glucose Level 180 Calcium Level 8.9 Troponin I < 0.012 < 0.012 Free Thyroxine 0.76 L Bedside Glucose 118 133 Creatine Kinase 74 Creatine Kinase Index 2.1 Creatinine Kinase MB (Mass) 1.55 Test 12/12/16 05:09 12/12/16 06:56 12/12/16 08:21 Bedside Glucose 137 149 White Blood Count 5.8 Red Blood Count 3.89 L Hemoglobin 12.0 Hematocrit 33.8 L Mean Corpuscular Volume 86.9 Mean Corpuscular Hemoglobin 30.8 Mean Corpuscular Hemoglobin Concent 35.5 Red Cell Distribution Width 12.2 Platelet Count 194 Mean Platelet Volume 10.0 Neutrophils % 46.7 Lymphocytes % 46.3 Monocytes % 6.4 Eosinophils % 0.0 Basophils % 0.3 Nucleated Red Blood Cells % 0.0 Neutrophils # (Manual) 2.7 Lymphocytes # 2.7 Monocytes # 0.4 Eosinophils # 0.0 Basophils # 0.0 Nucleated Red Blood Cells # 0.0 Sodium Level 140 Potassium Level 4.1 Chloride Level 109 Carbon Dioxide Level 25 Anion Gap 10 # Blood Urea Nitrogen 12 Creatinine 0.66 Glucose Level 125 # Hemoglobin A1c 6.9 H Calcium Level 8.2 L Phosphorus Level 3.5 Magnesium Level 2.1 Creatine Kinase 71 Creatine Kinase Index 1.8 Creatinine Kinase MB (Mass) 1.28 Troponin I < 0.012 Triglycerides Level 309 H Cholesterol Level 151 LDL Cholesterol, Calculated 58 HDL Cholesterol 31 L Cholesterol/HDL Ratio 4.8 Thyroid Stimulating Hormone (TSH) 4.180 Medications Medications Current Medications Ondansetron HCl (Zofran Inj) 4 mg Q6H PRN IV NAUSEA AND/OR VOMITING; Start 03/17 at 19:30 Acetaminophen (Tylenol Tab) 650 mg Q6H PRN PO PAIN LEVEL 1-3 OR FEVER; Start at 19:30 Acetaminophen/ Hydrocodone Bitart ([place] (5/325)) 1 tab Q6H PRN PO MODERATE PAIN LEVEL 4-6 Last administered on 12/12/16 00:00; Admin Dose 1 TAB; Start 03/17 at 19:30 Morphine Sulfate (morphine) 2 mg Q4H PRN IV SEVERE PAIN LEVEL 7-10; Start 12/11 at 19:30 Docusate Sodium (Colace) 100 mg Q12H PRN PO CONSTIPATION; Start 12/11/16 at 19: 30 Magnesium Hydroxide (Milk Of Mag) 30 ml DAILY PRN PO CONSTIPATION; Start at 19:30 Sodium Biphosphate/ Sodium Phosphate (Fleet Enema) 133 ml DAILY PRN [place] CONSTIPATION; Start 12/11/16 at 19:30 Pantoprazole 40 mg 40 mg DAILY@06 PO Last administered on 12/12/16 05:08; Admin Dose 40 MG; Start 12/12/16 at 06:00 Sodium Chloride (1/2 NS) 1,000 ml @ 75 mls/hr [id number] IV Last administered on 12/11/16 20:08; Admin Dose 75 MLS/HR; Start 12/11/16 at 19:13 Lorazepam (Ativan) 0.5 mg Q6H PRN IV ANXIETY; Start 12/11/16 at 19:30 Clonidine (Catapres) 0.1 mg Q6H PRN PO ELEVATED BLOOD PRESSURE Last administered on 12/11/16 23:59; Admin Dose 0.1 MG; Start 12/11/16 at 19:30 Nitroglycerin (Nitroglycerin (Sl Tab) 0.4 Mg) 1 tab Q5M PRN SL ANGINA; Start at 19:30 Diagnostic Test (Pha) (Accu-Chek) 1 ea 02 XX ; Start 12/12/16 at 02:00 Insulin Aspart (Novolog Insulin Pen) NOVOLOG *MILD* ALGORI... Q4 SC Last administered on 12/12/16 08:27; Admin Dose 1 UNIT; Start 12/11/16 at 21:00 Atorvastatin Calcium (Lipitor) 20 mg QHS PO Last administered on 12/12/16 00: 00; Admin Dose 20 MG; Start 12/11/16 at 21:00 Lisinopril (Zestril) 20 mg DAILY PO Last administered on 12/12/16 08:23; Admin Dose 20 MG; Start 12/12/16 at 09:00 Miscellaneous Information 1 ea NOTE XX ; Start 12/11/16 at 19:30 Glucose (Glutose) 15 gm Q15M PRN PO DECREASED GLUCOSE; Start 12/11/16 at 19:30 Glucose (Glutose) 22.5 gm Q15M PRN PO DECREASED GLUCOSE; Start 12/11/16 at 19: 30 Dextrose (D50w Syringe) 25 ml Q15M PRN IV DECREASED GLUCOSE; Start 12/11/16 at 19:30 Dextrose (D50w Syringe) 50 ml Q15M PRN IV DECREASED GLUCOSE; Start 12/11/16 at 19:30 Glucagon (Glucagen) 1 mg Q15M PRN IM DECREASED GLUCOSE; Start 12/11/16 at 19:30 Glucose (Glutose) 15 gm Q15M PRN BUCCAL DECREASED GLUCOSE; Start 12/11/16 at 19 :30 Hydralazine HCl (Apresoline) 10 mg Q4H PRN IV ELEVATED BLOOD PRESSURE; Start at 19:30 Procedures Procedures PROCEDURE: CT Brain without contrast. CLINICAL INDICATION: Headache. Trauma. Follow-up subdural and subarachnoid hemorrhage in the left frontal region. TECHNIQUE: A CT of the brain without contrast was performed utilizing axial sections from the skull base through the vertex. The patient was scanned without intravenous contrast enhancement. Sagittal and coronal reformatted images were obtained using the data from the axial images. Total exam DLP is 630.20 mGy-cm. CTDIvol is 43.27 mGy. One or more of the following dose reduction techniques were used: Automated exposure control, adjustment of the mA and/or kV according to patient size, use of iterative reconstruction technique. COMPARISON: CT scan of the brain dated 12/11/2016 which demonstrated a small amount of subdural and subarachnoid blood overlying the left frontal convexity and falx. FINDINGS: There is normal traore-white matter differentiation. The ventricles and cisterns are normal. As seen previously, there is a small amount of subarachnoid and subdural blood overlying the posterior aspect of the superior frontal gyrus as well as the falx. There is no mass effect. There is no line shift. There is no other new intracranial hemorrhage or space-occupying lesion. There is no skull fracture or lytic lesion. IMPRESSION: 1. Small amount of subdural and subarachnoid blood overlying the left frontal convexity and falx, unchanged. No midline shift or mass effect. 2. No new intracranial hemorrhage or space-occupying lesion. 3. Otherwise unremarkable noncontrast CT scan of the brain. RPTAT: QQ .Rob Hayden MD, MD Date Time Electronically viewed and signed by .Rob Hayden MD, MD on 12/12/2016 11:31 TAISHA KO Dec 12, 2016 12:17
--- NOTE | 2016-12-12 12:20 | PDOCDIS ---
Discharge Instructions CONDITION Patient Condition: Stable HOME CARE INSTRUCTIONS: Special Diet: CARB CONTROLLED ACTIVITY: Activity Restrictions: No Restrictions FOLLOW UP/APPOINTMENTS Follow-up Plan Follow-up with primary care physician within 1 week Follow-up with neurosurgery as an outpatient as needed, for now no need to. TAISHA KO Dec 12, 2016 12:20
--- NOTE | 2016-12-12 15:22 | CONS ---
Date/Time of Note Date/Time of Note DATE: 12/12/16 TIME: 15:16 Assessment/Plan Assessment/Plan Chief Complaint/Hosp Course s/p fall with small traumatic SAH/subdural hematoma. Stable small bleed. Unlikely to progress to require any neurosurgical treatment and blood should resolve with time. OK to D/c from NS perspective- no follow-up imaging necessary unless neurologically changes. No NS follow-up necessary. Problems: Consultation Date/Type/Reason Admit Date/Time Dec 11, 2016 at 18:51 Initial Consult Date Type of Consultation: Neurosurgery Reason for Consultation traumtic SAH 24 HR Interval Summary Free Text/Dictation The patient is neurologically stable with no new complaints. Denies headache only pain left brow from direct trauma. Denies nausea, vomiting, numbness, tingling or weakness. Exam/Review of Systems Vital Signs Vitals Vital Signs Date Time Temp Pulse Resp B/P Pulse Ox O2 Delivery O2 Flow Rate FiO2 12/12/16 12:34 69 12/12/16 11:41 97.5 18 152/70 94 12/11/16 21:21 Room Air Exam Constitutional: alert, oriented, well developed Psych: anxiety Neurological: HAND KISS SETTER II-XII intact, nl mental status, nl speech, nl strength, other (no pronator drift) Results Result Diagram: 12/12/16 0656 12/12/16 0656 Results 24 hrs Laboratory Tests Test 12/11/16 18:05 12/11/16 22:01 12/11/16 23:55 12/12/16 00:55 White Blood Count 7.0 # Red Blood Count 4.29 Hemoglobin 13.4 Hematocrit 37.1 Mean Corpuscular Volume 86.5 Mean Corpuscular Hemoglobin 31.2 Mean Corpuscular Hemoglobin Concent 36.1 Red Cell Distribution Width 11.9 Platelet Count 217 Mean Platelet Volume 10.1 Neutrophils % 46.9 Lymphocytes % 46.6 Monocytes % 5.7 Eosinophils % 0.1 Basophils % 0.3 Nucleated Red Blood Cells % 0.0 Neutrophils # (Manual) 3.3 Lymphocytes # 3.3 H Monocytes # 0.4 Eosinophils # 0.0 Basophils # 0.0 Nucleated Red Blood Cells # 0.0 Prothrombin Time 11.4 L Prothrombin Time Ratio 0.9 INR International Normalized Ratio 0.83 Activated Partial Thromboplast Time 37.8 H Sodium Level 142 Potassium Level 3.8 Chloride Level 108 Carbon Dioxide Level 23 Anion Gap 15 Blood Urea Nitrogen 13 Creatinine 0.66 Glucose Level 180 Calcium Level 8.9 Troponin I < 0.012 < 0.012 Free Thyroxine 0.76 L Bedside Glucose 118 133 Creatine Kinase 74 Creatine Kinase Index 2.1 Creatinine Kinase MB (Mass) 1.55 Test 12/12/16 05:09 12/12/16 06:56 12/12/16 08:21 12/12/16 12:21 Bedside Glucose 137 149 156 White Blood Count 5.8 Red Blood Count 3.89 L Hemoglobin 12.0 Hematocrit 33.8 L Mean Corpuscular Volume 86.9 Mean Corpuscular Hemoglobin 30.8 Mean Corpuscular Hemoglobin Concent 35.5 Red Cell Distribution Width 12.2 Platelet Count 194 Mean Platelet Volume 10.0 Neutrophils % 46.7 Lymphocytes % 46.3 Monocytes % 6.4 Eosinophils % 0.0 Basophils % 0.3 Nucleated Red Blood Cells % 0.0 Neutrophils # (Manual) 2.7 Lymphocytes # 2.7 Monocytes # 0.4 Eosinophils # 0.0 Basophils # 0.0 Nucleated Red Blood Cells # 0.0 Sodium Level 140 Potassium Level 4.1 Chloride Level 109 Carbon Dioxide Level 25 Anion Gap 10 # Blood Urea Nitrogen 12 Creatinine 0.66 Glucose Level 125 # Hemoglobin A1c 6.9 H Calcium Level 8.2 L Phosphorus Level 3.5 Magnesium Level 2.1 Creatine Kinase 71 Creatine Kinase Index 1.8 Creatinine Kinase MB (Mass) 1.28 Troponin I < 0.012 Triglycerides Level 309 H Cholesterol Level 151 LDL Cholesterol, Calculated 58 HDL Cholesterol 31 L Cholesterol/HDL Ratio 4.8 Thyroid Stimulating Hormone (TSH) 4.180 Medications Medications Current Medications Ondansetron HCl (Zofran Inj) 4 mg Q6H PRN IV NAUSEA AND/OR VOMITING; Start 03/17 at 19:30 Acetaminophen (Tylenol Tab) 650 mg Q6H PRN PO PAIN LEVEL 1-3 OR FEVER; Start at 19:30 Acetaminophen/ Hydrocodone Bitart ([place] (5/325)) 1 tab Q6H PRN PO MODERATE PAIN LEVEL 4-6 Last administered on 12/12/16t 00:00; Admin Dose 1 TAB; Start 03/17 at 19:30 Morphine Sulfate (morphine) 2 mg Q4H PRN IV SEVERE PAIN LEVEL 7-10; Start 12/11 at 19:30 Docusate Sodium (Colace) 100 mg Q12H PRN PO CONSTIPATION; Start 12/11/16 at 19: 30 Magnesium Hydroxide (Milk Of Mag) 30 ml DAILY PRN PO CONSTIPATION; Start at 19:30 Sodium Biphosphate/ Sodium Phosphate (Fleet Enema) 133 ml DAILY PRN MO CONSTIPATION; Start 12/11/16 at 19:30 Pantoprazole (Protonix Tab) 40 mg DAILY@06 PO Last administered on 12/12/16 05 :08; Admin Dose 40 MG; Start 12/12/16 at 06:00 Lorazepam (Ativan) 0.5 mg Q6H PRN IV ANXIETY; Start 12/11/16 at 19:30 Clonidine (Catapres) 0.1 mg Q6H PRN PO ELEVATED BLOOD PRESSURE Last administered on 12/11/16 23:59; Admin Dose 0.1 MG; Start 12/11/16 at 19:30 Nitroglycerin (Nitroglycerin (Sl Tab) 0.4 Mg) 1 tab Q5M PRN SL ANGINA; Start at 19:30 Diagnostic Test (Pha) (Accu-Chek) 1 ea 02 XX ; Start 12/12/16 at 02:00 Insulin Aspart (Novolog Insulin Pen) NOVOLOG *MILD* ALGORI... Q4 SC Last administered on 12/12/16 12:23; Admin Dose 1 UNIT; Start 12/11/16 at 21:00 Atorvastatin Calcium (Lipitor) 20 mg QHS PO Last administered on 12/12/16 00: 00; Admin Dose 20 MG; Start 12/11/16 at 21:00 Lisinopril (Zestril) 20 mg DAILY PO Last administered on 12/12/16 08:23; Admin Dose 20 MG; Start 12/12/16 at 09:00 Miscellaneous Information 1 ea NOTE XX ; Start 12/11/16 at 19:30 Glucose (Glutose) 15 gm Q15M PRN PO DECREASED GLUCOSE; Start 12/11/16 at 19:30 Glucose (Glutose) 22.5 gm Q15M PRN PO DECREASED GLUCOSE; Start 12/11/16 at 19: 30 Dextrose (D50w Syringe) 25 ml Q15M PRN IV DECREASED GLUCOSE; Start 12/11/16 at 19:30 Dextrose (D50w Syringe) 50 ml Q15M PRN IV DECREASED GLUCOSE; Start 12/11/16 at 19:30 Glucagon (Glucagen) 1 mg Q15M PRN IM DECREASED GLUCOSE; Start 12/11/16 at 19:30 Glucose (Glutose) 15 gm Q15M PRN BUCCAL DECREASED GLUCOSE; Start 12/11/16 at 19 :30 Hydralazine HCl (Apresoline) 10 mg Q4H PRN IV ELEVATED BLOOD PRESSURE; Start at 19:[address] head- as interpreted by Rob Hayden MD: IMPRESSION: 1. Small amount of subdural and subarachnoid blood overlying the left frontal convexity and falx, unchanged. No midline shift or mass effect. 2. No new intracranial hemorrhage or space-occupying lesion. 3. Otherwise unremarkable noncontrast CT scan of the brain. I concur with this interpretation. GRAVELY,CARLIN Ramirez MD Dec 12, 2016 15:22
== END 2016-12-12 16:11 | disposition home or self-care (01) | DRG 87 ==
LOC: FTE 12:43 → TEL 18:51
PROVIDERS: ADMIT Hospitalist; ATTEND Hospitalist
DX: S06.5X0A Traumatic subdural hemorrhage without loss of consciousness, initial encounter (principal); S06.6X0A Traumatic subarachnoid hemorrhage without loss of consciousness, initial encounter; E11.9 Type 2 diabetes mellitus without complications; Z79.82 Long term (current) use of aspirin; W06.XXXA Fall from bed, initial encounter; Y92.009 Unspecified place in unspecified non-institutional (private) residence as the place of occurrence of the external cause; E78.00 Pure hypercholesterolemia, unspecified; E78.5 Hyperlipidemia, unspecified; Z90.710 Acquired absence of both cervix and uterus
CPT/HCPCS: 36415; 70450; 70480; 72100; 72125; 80048; 80061; 82550; 82553; 82962; 83036; 83735; 84100; 84439; 84443; 84484; 85025; 85610; 85730; 92610; 93005; 97162; 97166; J1815